=== PATIENT | female | born 2000 | race Caucasian/White ===

== ENCOUNTER 2021-05-07 11:55 | Emergency (ER) | payer MEDICAID ==
[~2021-05-07] VITALS: Ht 157.5 cm; Wt 84.8 kg
[2021-05-07] MEDS ORDERED: IBUPROFEN 600 MG TABLET PO ONE (13:15)
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
== END 2021-05-07 13:28 | disposition home or self-care (01) ==
LOC: ER 11:55
DX: M25.561 Pain in right knee (principal); V43.62XA Car passenger injured in collision with other type car in traffic accident, initial encounter; Y92.410 Unspecified street and highway as the place of occurrence of the external cause
CPT/HCPCS: A4663